=== PATIENT | male | born 1985 | race Caucasian/White ===

== ENCOUNTER 2020-10-27 04:23 | Emergency (ER) | payer SELFPAY ==
[~2020-10-27] VITALS: Ht 195.6 cm; Wt 161.8 kg
[2020-10-27] MEDS ORDERED: aspirin 81mg tab.chew PO ONE (05:00)
[2020-10-27 05:40] LABS: BASOPHILS # (AUTO) 0.1 X10'3 (0-0.2); BASOPHILS % (AUTO) 0.7 % (0-1); EOSINOPHILS # (AUTO) 0.3 X10'3 (0-0.9); EOSINOPHILS % (AUTO) 3.6 % (0-6); HEMATOCRIT 37.4 % (42.0-52.0); HEMOGLOBIN 12.4 g/dl (14.0-17.9); LYMPHOCYTES # (AUTO) 1.6 X10'3 (1.1-4.8); LYMPHOCYTES % (AUTO) 19.8 % (21-51); MEAN CORPUSCULAR HEMOGLOBIN 28.8 PG (27.0-31.0); MEAN CORPUSCULAR HGB CONC 33.2 g/dL (33.0-36.5); MEAN CORPUSCULAR VOLUME 86.8 FL (78-98); MEAN PLATELET VOLUME 8.5 FL (7.4-10.4); MONOCYTES # (AUTO) 0.7 X10'3 (0-0.9); MONOCYTES % (AUTO) 8.6 % (2-12); NEUTROPHILS # (AUTO) 5.5 X10'3 (1.8-7.7); NEUTROPHILS % (AUTO) 67.3 % (42-75); PLATELET COUNT 237 X10'3 (140-440); RED BLOOD COUNT 4.31 X10'6 (4.70-6.10); RED CELL DISTRIBUTION WIDTH 14.6 % (11.5-14.5); WHITE BLOOD COUNT 8.2 X10'3 (4.5-11.0)
[2020-10-27 05:55] LABS: ALANINE AMINOTRANSFERASE 48 U/L (12-78); ALBUMIN 3.3 G/DL (3.4-5.0); ALBUMIN/GLOBULIN RATIO 0.8 (1.1-1.5); ALKALINE PHOSPHATASE 52 IU/L (46-116); ANION GAP 6 (8-16); ASPARTATE AMINO TRANSFERASE 31 U/L (10-37); BILIRUBIN,TOTAL 0.3 MG/DL (0.1-1.0); BLOOD UREA NITROGEN 13 MG/DL (7-18); BUN/CREATININE RATIO 12.3 (5.4-32.0); CALCIUM 8.5 MG/DL (8.5-10.1); CHLORIDE 105 MMOL/L (99-107); CREATININE 1.06 MG/DL (0.60-1.10); GLUCOSE 93 MG/DL (70-104); SODIUM 141 MMOL/L (135-145); TOTAL CARBON DIOXIDE 29.9 MMOL/L (24-32); TOTAL PROTEIN 7.2 G/DL (6.4-8.2); eGFR 79 ML/MIN
[2020-10-27 06:02] LABS: MAGNESIUM 2.3 MG/DL (1.5-2.4)
--- NOTE | 2020-10-27 08:53 | NUR ---
Ex Rachel [phone].
[2020-10-27 09:11] VITALS: BP 133/88
== END 2020-10-27 09:12 | disposition home or self-care (01) ==
LOC: ER 04:24
DX: R07.89 Other chest pain (principal); R94.31 Abnormal electrocardiogram [ECG] [EKG]; R60.9 Edema, unspecified; R53.83 Other fatigue; R11.0 Nausea; F17.200 Nicotine dependence, unspecified, uncomplicated; Z98.890 Other specified postprocedural states
CPT/HCPCS: 36415; 71045; 80053; 83735; 83880; 84484; 85025; 93005; 93971; 99285

== ENCOUNTER 2022-02-15 19:13 | Inpatient (IN) | payer MEDICAID ==
[~2022-02-15] VITALS: Ht 198.1 cm; Wt 156.6 kg
[2022-02-15] MEDS ORDERED: acetaminophen 325mg tablet PO STA (21:09)
[2022-02-15] MEDS ORDERED: ceFAZolin 1GM/D5W- ADD-VANTAGE 50 ML IV ONE (21:10)
[2022-02-15] MEDS ORDERED: normal saline 1000ml 1,000 ML IV ONE ×2 (21:10→22:50)
[2022-02-15 22:33] LABS: BASOPHILS % (AUTO) 0.2 % (0-1); EOSINOPHILS % (AUTO) 0.1 % (0-6); HEMATOCRIT 39.1 % (42.0-52.0); LYMPHOCYTES % (AUTO) 7.2 % (21-51); MEAN CORPUSCULAR HEMOGLOBIN 28.5 PG (27.0-31.0); MEAN CORPUSCULAR HGB CONC 33.3 g/dL (33.0-36.5); MEAN CORPUSCULAR VOLUME 85.5 FL (78-98); MEAN PLATELET VOLUME 8.6 FL (7.4-10.4); MONOCYTES % (AUTO) 7.8 % (2-12); NEUTROPHILS # (AUTO) 11.3 X10'3 (1.8-7.7); NEUTROPHILS % (AUTO) 84.7 % (42-75); PLATELET COUNT 223 X10'3 (140-440); RED BLOOD COUNT 4.57 X10'6 (4.70-6.10); RED CELL DISTRIBUTION WIDTH 15.1 % (11.5-14.5); WHITE BLOOD COUNT 13.3 X10'3 (4.5-11.0)
[2022-02-15 23:00] LABS: ALANINE AMINOTRANSFERASE 57 U/L (12-78); ALBUMIN/GLOBULIN RATIO 0.7 (1.1-1.5); ALKALINE PHOSPHATASE 59 IU/L (46-116); ANION GAP 7 (8-16); ASPARTATE AMINO TRANSFERASE 42 U/L (10-37); BILIRUBIN,TOTAL 0.4 MG/DL (0.1-1.0); BLOOD UREA NITROGEN 13 MG/DL (7-18); BUN/CREATININE RATIO 11.8 (5.4-32.0); CALCIUM 8.6 MG/DL (8.5-10.1); CHLORIDE 95 MMOL/L (99-107); GLUCOSE 120 MG/DL (70-104); MAGNESIUM 2.1 MG/DL (1.5-2.4); POTASSIUM 4.1 MMOL/L (3.5-5.1); SODIUM 132 MMOL/L (135-145); TOTAL PROTEIN 7.3 G/DL (6.4-8.2); eGFR 75 ML/MIN
[2022-02-15] MEDS ORDERED: ketorolac trometh. 30mg/ml inj. IV ONE (23:20)
[2022-02-16] MEDS ORDERED: magnesium Cl slow-release 64mg tablet PO PRN (01:10)
[2022-02-16] MEDS ORDERED: magnesium 4gm in 100ml NS 100 ML IV PRN (01:10)
[2022-02-16] MEDS ORDERED: potassium CL 10mEq/100ml bag 100 ML IV PRN (01:10)
[2022-02-16] MEDS ORDERED: ondansetron/PF 4mg/2ml inj IV PRN (01:10)
[2022-02-16] MEDS ORDERED: acetaminophen 325mg tablet PO PRN (01:10)
[2022-02-16] MEDS ORDERED: magnesium 2GM in 50ml NS 50 ML IV PRN (01:10)
[2022-02-16] MEDS ORDERED: POTASSIUM BICARB 20meq eff tab 20 MEQ TABLET.EFF PO PRN ×2 (01:10)
[2022-02-16] MEDS ORDERED: mag hydrox/Alum hydrox/simeth 30ml oral suspension PO PRN (01:10)
[2022-02-16] MEDS ORDERED: magnesium hydroxide 30ml (MOM) UD suspension PO PRN (01:10)
[2022-02-16] MEDS: clindamycin 150mg capsule PO SCH ×4 (01:30→20:19)
[2022-02-16] MEDS ORDERED: NO HOME MEDS (01:51)
--- NOTE | 2022-02-16 02:54 | NUR ---
report called to amanda no questions awaiting patient
[2022-02-16 03:05] VITALS: BP 137/87
--- NOTE | 2022-02-16 03:05 | NUR ---
PATIENT ADMITTED TO ROOM 4014B FROM ER FOR LEFT LOWER EXTREMITY CELLULITIS. PLACE COMFORTABLE IN BED. VITAL SIGNS TAKEN AND RECORDED.
[2022-02-16] MEDS: normal saline 1000ml 1,000 ML IV SCH ×3 (03:10→20:20)
[2022-02-16 06:00] VITALS: BP 157/90
[2022-02-16] MEDS: HYDROcodone/acetaminophen 5mg/325mg tablet PO PRN ×2 (06:06→12:36)
--- NOTE | 2022-02-16 06:40 | NUR ---
Problems reprioritized. Patient report given, questions answered & plan of care reviewed with CLAIRE PETERSON.
--- NOTE | 2022-02-16 06:44 | NUR ---
Patient in room ORTHO 4014. I have received report from Rosette and had the opportunity to ask questions and assume patient care.
[2022-02-16] MEDS: K and/or MAG REPLACEMENT MC SCH ×2 (07:57→20:00)
[2022-02-16] MEDS: docusate sod 100mg capsule PO SCH ×2 (08:00→20:20)
[2022-02-16] MEDS: heparin, porcine 5000 units/ml vial SQ SCH ×2 (08:01→20:19)
[2022-02-16 10:00] VITALS: BP 143/82
[2022-02-16 10:25] LABS: MAGNESIUM 2.1 MG/DL (1.5-2.4)
[2022-02-16] MEDS: cefazolin/dext.iso 2gm/100ml 100 ML IV SCH ×2 (11:18→16:24)
--- NOTE | 2022-02-16 14:09 | NUR ---
RE: Kanu in [id number], pt has 10/10 headache, norco did not relieve, pt requesting pain medication, please advise Thank you Mckenzie [phone]
[2022-02-16] MEDS ORDERED: ibuprofen 200mg tablet PO PRN (16:55)
[2022-02-16 18:00] VITALS: BP 123/72
--- NOTE | 2022-02-16 18:19 | NUR ---
Problems reprioritized. Patient report given, questions answered & plan of care reviewed with Rosette.
--- NOTE | 2022-02-16 18:30 | NUR ---
Patient in room ORTHO 4014. I have received report from CLAIRE PETERSON and had the opportunity to ask questions and assume patient care.
[2022-02-16] MEDS ORDERED: Melatonin 3mg tablet PO SCH (21:10)
[2022-02-16] MEDS: nicotine 7mg patch - 24hr TD SCH (21:42)
[2022-02-16 22:00] VITALS: BP 156/82
--- NOTE | 2022-02-16 22:47 | NUR ---
Student documentation: I have reviewed interventions, assessments performed and documented by Mazin [facility] .
[2022-02-17] MEDS: cefazolin/dext.iso 2gm/100ml 100 ML IV SCH ×2 (00:38→08:00)
[2022-02-17] MEDS: clindamycin 150mg capsule PO SCH ×2 (03:03→08:15)
[2022-02-17 06:00] VITALS: BP 140/90
--- NOTE | 2022-02-17 06:30 | NUR ---
Problems reprioritized. Patient report given, questions answered & plan of care reviewed with KARLA PETERSON.
[2022-02-17] MEDS: normal saline 1000ml 1,000 ML IV SCH (07:10)
[2022-02-17 07:35] LABS: ALANINE AMINOTRANSFERASE 58 U/L (12-78); ALBUMIN 2.7 G/DL (3.4-5.0); ALBUMIN/GLOBULIN RATIO 0.6 (1.1-1.5); ALKALINE PHOSPHATASE 67 IU/L (46-116); ANION GAP 9 (8-16); ASPARTATE AMINO TRANSFERASE 41 U/L (10-37); BILIRUBIN,TOTAL 0.4 MG/DL (0.1-1.0); BLOOD UREA NITROGEN 11 MG/DL (7-18); BUN/CREATININE RATIO 13.6 (5.4-32.0); CHLORIDE 101 MMOL/L (99-107); CREATININE 0.81 MG/DL (0.60-1.10); GLUCOSE 91 MG/DL (70-104); POTASSIUM 4.4 MMOL/L (3.5-5.1); SODIUM 137 MMOL/L (135-145); TOTAL CARBON DIOXIDE 27.3 MMOL/L (24-32); TOTAL PROTEIN 7.5 G/DL (6.4-8.2); eGFR > 90 ML/MIN
[2022-02-17] MEDS: K and/or MAG REPLACEMENT MC SCH (08:00)
[2022-02-17] MEDS: docusate sod 100mg capsule PO SCH (08:15)
[2022-02-17] MEDS: heparin, porcine 5000 units/ml vial SQ SCH (08:18)
[2022-02-17] MEDS: nicotine 7mg patch - 24hr TD SCH (08:19)
[2022-02-17 10:00] VITALS: BP 159/86
--- NOTE | 2022-02-17 10:51 | NUR ---
Paged [facility] Nurs Group Re: Dragan Bobby [id number] Nurse unable to place IV. Lab had difficulty drawing blood, needs PIV and labs. Please assist or advise.
--- NOTE | 2022-02-17 11:17 | NUR ---
Patient informed by Doctor that he would need to stay, Patient wanted to leave. Doctor educated Patient on the risks of leaving as well as the benefits of staying, including that we could increasing his nicotine patch strength, and to return to ER if he wishes to get care. This nurse also educated patient on the risks of leaving and benefits of stay. Patient adamant he wanted to leave. AMA form signed by Doctor and Patient. Patient agreed to have nicotine patch removed prior to leaving as he wanted to smoke, Nurse advised patient to follow up with his Primary Care Provider. Patient left at 1115.
--- NOTE | 2022-02-17 14:00 | NUR ---
WOUND INFECTION EDUCATION PROVIDED BY WOUND CARE 1. Patient instructed to call their primary doctor, or go the ED immediately if any of the following symptoms occur: * Increased pain in wound * Increase in drainage from the wound * Redness in the skin surrounding the wound * Warmth in the skin surrounding the wound * Bleeding from the wound * Temperature of 101 or greater 2. If any of these occur while in the hospital tell a nurse immediately. Addendum: 02/17/22 at 1400 by Kimmy Rick LVN Amended: Links added.
== END 2022-02-17 11:10 | disposition left against medical advice (07) | DRG 383 ==
LOC: ER 19:14 → ED HOLD 02-16 01:12 → ORTHO 4S 02-16 03:22
PROVIDERS: ADMIT Internal Medicine; ATTEND Family Medicine
DX: L03.116 Cellulitis of left lower limb (principal); Z20.822 Contact with and (suspected) exposure to COVID-19; Z53.29 Procedure and treatment not carried out because of patient's decision for other reasons
CPT/HCPCS: 36415; 71045; 80053; 83605; 83735; 84132; 84145; 85025; 87040; 87081; 87811; 93005; 93971; 99285; A4333; G0378; J0690; J1644; J1885; J2405; J7030

== ENCOUNTER 2024-03-10 15:09 | Emergency (ER) | payer SELFPAY ==
[~2024-03-10] VITALS: Ht 198.1 cm; Wt 145.2 kg
[~2024-03-10 15:09] MED LIST: NO HOME MEDS
[2024-03-10 15:11] VITALS: BP 138/98; PULSE 100; TEMP 97.9; O2SAT 98
[2024-03-10] MEDS ORDERED: AMOX500C2 PO (15:19)
[2024-03-10] MEDS: amoxicillin 250mg capsule PO ONE (16:06)
[2024-03-10 16:08] VITALS: RESP 18
== END 2024-03-10 16:10 | disposition home or self-care (01) ==
LOC: ER 15:10
DX: K08.89 Other specified disorders of teeth and supporting structures (principal); K04.7 Periapical abscess without sinus; K02.9 Dental caries, unspecified; Z79.2 Long term (current) use of antibiotics; Z98.890 Other specified postprocedural states
CPT/HCPCS: 99283

== ENCOUNTER 2024-05-24 21:15 | Inpatient (IN) | payer MEDICAID ==
[~2024-05-24] VITALS: Ht 198.1 cm; Wt 141.7 kg
[2024-05-25] MEDS ORDERED: magnesium hydroxide 30ml (MOM) UD suspension PO PRN (02:50)
[2024-05-25] MEDS ORDERED: potassium Cl 20 mEq SR tablet PO PRN ×2 (02:50)
[2024-05-25] MEDS ORDERED: magnesium sulf-water 4G/100mL 100 ML IV PRN (02:50)
[2024-05-25] MEDS ORDERED: morphine 2 MG/ML inj. syringe IV PRN (02:50)
[2024-05-25] MEDS ORDERED: mag hydrox/Alum hydrox/simeth 30ml oral suspension PO PRN (02:50)
[2024-05-25] MEDS ORDERED: magnesium Cl slow-release 64mg tablet PO PRN (02:50)
[2024-05-25] MEDS ORDERED: potassium Cl 40MEQ/1/2NS 520ml 520 ML IV PRN (02:50)
[2024-05-25] MEDS ORDERED: acetaminophen 325mg tablet PO PRN (02:50)
[2024-05-25] MEDS ORDERED: magnesium sulf-water 2g/50mL 50 ML IV PRN (02:50)
[2024-05-25] MEDS ORDERED: ondansetron/PF 4mg/2ml inj IV PRN (02:50)
[2024-05-25] MEDS ORDERED: vancomycin/NS 1 GM ADD-VANTAGE 250 ML IV ONE (03:15)
[2024-05-25] MEDS: metroNIDAZOLE-Flagyl 500mg/NS 100 ML IV SCH (04:07)
[2024-05-25] MEDS: normal saline 1000ml 1,000 ML IV SCH (04:08)
[2024-05-25] MEDS ORDERED: vancomycin/NS 1 GM ADD-VANTAGE 250 ML X 1 DOSE IV ONE (04:45)
[2024-05-25] MEDS: CefTRIAXone/D5W-Rocephin 1gm 50 ML IV SCH (04:54)
[2024-05-25 04:55] LABS: BASOPHILS % (AUTO) 0.5 % (0-1); EOSINOPHILS # (AUTO) 0.3 X10'3 (0-0.9); EOSINOPHILS % (AUTO) 2.7 % (0-6); HEMATOCRIT 42.8 % (42.0-52.0); HEMOGLOBIN 14.3 g/dl (14.0-17.9); LYMPHOCYTES # (AUTO) 1.8 X10'3 (1.1-4.8); LYMPHOCYTES % (AUTO) 19.4 % (21-51); MEAN CORPUSCULAR HEMOGLOBIN 28.6 PG (27.0-31.0); MEAN CORPUSCULAR HGB CONC 33.3 g/dL (33.0-36.5); MEAN CORPUSCULAR VOLUME 85.9 FL (78-98); MONOCYTES # (AUTO) 0.6 X10'3 (0-0.9); MONOCYTES % (AUTO) 6.1 % (2-12); NEUTROPHILS # (AUTO) 6.7 X10'3 (1.8-7.7); NEUTROPHILS % (AUTO) 71.3 % (42-75); PLATELET COUNT 367 X10'3 (140-440); RED BLOOD COUNT 4.98 X10'6 (4.70-6.10); RED CELL DISTRIBUTION WIDTH 13.7 % (11.5-14.5); WHITE BLOOD COUNT 9.4 X10'3 (4.5-11.0)
[2024-05-25 05:07] LABS: ALANINE AMINOTRANSFERASE 28 U/L (12-78); ALBUMIN 3.3 G/DL (3.4-5.0); ALBUMIN/GLOBULIN RATIO 0.7 (1.1-1.5); ALKALINE PHOSPHATASE 52 IU/L (46-116); ANION GAP 8 (8-16); ASPARTATE AMINO TRANSFERASE 19 U/L (10-37); BILIRUBIN,TOTAL 0.3 MG/DL (0.1-1.0); BLOOD UREA NITROGEN 13 MG/DL (7-18); BUN/CREATININE RATIO 14.8 (10.0-20.0); CALCIUM 9.4 MG/DL (8.5-10.1); CHLORIDE 100 MMOL/L (99-107); CREATININE 0.88 MG/DL (0.60-1.10); GLUCOSE 99 MG/DL (70-104); POTASSIUM 3.6 MMOL/L (3.5-5.1); SODIUM 139 MMOL/L (135-145); TOTAL CARBON DIOXIDE 31.5 MMOL/L (24-32); eCRCL 143 ML/MIN; eGFR > 90 ML/MIN
[2024-05-25 05:08] LABS: MAGNESIUM 2.2 MG/DL (1.5-2.4); POTASSIUM 3.6 MMOL/L (3.5-5.1)
[2024-05-25 05:50] VITALS: RESP 14; O2SAT 100
[2024-05-25 06:00] VITALS: BP 153/107; PULSE 70; RESP 14; TEMP 97.3; O2SAT 100
[2024-05-25] MEDS: vancomycin/NS 1 GM ADD-VANTAGE 250 ML X 1 DOSE IV ONE (07:31)
[2024-05-25] MEDS: K and/or MAG REPLACEMENT MC SCH (08:00)
[2024-05-25] MEDS: vancomycin/NS 1 GM ADD-VANTAGE 250 ML IV ONE (09:41)
[2024-05-25] MEDS: docusate sod 100mg capsule PO SCH (09:44)
[2024-05-25] MEDS: heparin, porcine 5000 units/ml vial SQ SCH (09:45)
[2024-05-25 10:00] VITALS: BP 150/88; PULSE 81; RESP 14; TEMP 97.1; O2SAT 99
[2024-05-25 14:39] LABS: URINE AMPHETAMINE SCREEN POSITIVE (Neg); URINE BARBITUATE SCREEN NEGATIVE (Neg); URINE BENZODIAZEPINES SCREEN NEGATIVE (Neg); URINE CANNABINOID SCREEN POSITIVE (Neg); URINE COCAINE SCREEN NEGATIVE (Neg); URINE METHADONE SCREEN NEGATIVE (Neg); URINE OPIATE SCREEN NEGATIVE (Neg); URINE PHENCYCLIDINE SCREEN NEGATIVE (Neg)
[2024-05-25] MEDS: piperacillin/tazo 4.5gm/100ml 100 ML IV SCH (16:00)
[2024-05-25] MEDS: vancomycin/NS 1 GM ADD-VANTAGE 250 ML IV SCH (16:25)
[2024-05-25 18:00] VITALS: BP 152/84; PULSE 61; RESP 14; TEMP 98.7; O2SAT 100
[2024-05-25] MEDS ORDERED: GADOTERATE MEGLUMINE 7.5 MMOL/15 ML VIAL IV ONE (19:23)
[2024-05-25 20:00] VITALS: RESP 16
[2024-05-25 22:00] VITALS: BP 147/95; PULSE 81; RESP 18; TEMP 97.9; O2SAT 98
[2024-05-25] MEDS: hydrOXYzine 25 MG tablet PO PRN (22:42)
[2024-05-26] VITALS (19 sets, daily range): BP systolic 102–155; BP diastolic 72–105; PULSE 66–82; RESP 14–18; TEMP 96.9–98.1; O2SAT 95–100
[2024-05-26] MEDS: VANCOMYCIN LEVEL IV ONE (07:30)
[2024-05-26 09:00] LABS: ALANINE AMINOTRANSFERASE 64 U/L (12-78); ALBUMIN 2.9 G/DL (3.4-5.0); ALBUMIN/GLOBULIN RATIO 0.7 (1.1-1.5); ALKALINE PHOSPHATASE 46 IU/L (46-116); ANION GAP 6 (8-16); ASPARTATE AMINO TRANSFERASE 78 U/L (10-37); BILIRUBIN,TOTAL 0.3 MG/DL (0.1-1.0); BLOOD UREA NITROGEN 17 MG/DL (7-18); BUN/CREATININE RATIO 17.7 (10.0-20.0); CALCIUM 8.7 MG/DL (8.5-10.1); CHLORIDE 105 MMOL/L (99-107); CREATININE 0.96 MG/DL (0.60-1.10); GLUCOSE 96 MG/DL (70-104); MAGNESIUM 2.2 MG/DL (1.5-2.4); POTASSIUM 4.5 MMOL/L (3.5-5.1); SODIUM 138 MMOL/L (135-145); TOTAL CARBON DIOXIDE 26.9 MMOL/L (24-32); TOTAL PROTEIN 6.9 G/DL (6.4-8.2); VANCOMYCIN,TROUGH 13.8 ug/mL (10.0-20.0); eCRCL 131 ML/MIN; eGFR 86 ML/MIN
[2024-05-26 11:18] LABS: BASOPHILS # (AUTO) 0.1 X10'3 (0-0.2); BASOPHILS % (AUTO) 0.7 % (0-1); EOSINOPHILS # (AUTO) 0.2 X10'3 (0-0.9); EOSINOPHILS % (AUTO) 2.6 % (0-6); HEMATOCRIT 41.6 % (42.0-52.0); HEMOGLOBIN 13.7 g/dl (14.0-17.9); LYMPHOCYTES # (AUTO) 1.3 X10'3 (1.1-4.8); LYMPHOCYTES % (AUTO) 16.2 % (21-51); MEAN CORPUSCULAR HEMOGLOBIN 28.4 PG (27.0-31.0); MEAN CORPUSCULAR VOLUME 86.1 FL (78-98); MEAN PLATELET VOLUME 7.7 FL (7.4-10.4); MONOCYTES # (AUTO) 0.7 X10'3 (0-0.9); MONOCYTES % (AUTO) 8.4 % (2-12); NEUTROPHILS % (AUTO) 72.1 % (42-75); PLATELET COUNT 313 X10'3 (140-440); RED BLOOD COUNT 4.84 X10'6 (4.70-6.10); RED CELL DISTRIBUTION WIDTH 13.5 % (11.5-14.5); WHITE BLOOD COUNT 8.3 X10'3 (4.5-11.0)
[2024-05-26] MEDS: dextrose 50%-water 50ml dispensing syringe IV ONE ×2 (13:03→13:17)
[2024-05-26] MEDS ORDERED: bacitracin 15gm ointment TP ONE (13:23)
[2024-05-26] MEDS ORDERED: BUPIVAcaine 2.5mg/ml inj 50ml vial (contains preservative) ONE (13:23)
[2024-05-26] MEDS ORDERED: sevoflurane 250ml liquid IH ONE (13:54)
[2024-05-26] MEDS ORDERED: ondansetron/PF 4mg/2ml inj IV PRN (13:55)
[2024-05-26] MEDS ORDERED: morphine 4 MG/ML inj SYRINge IV PRN (13:55)
[2024-05-26] MEDS ORDERED: proCHLORperazine 10 MG/2 ml inj IV PRN (13:55)
[2024-05-26] MEDS ORDERED: meperidine/PF 25mg/ml syringe IV PRN ×3 (13:55)
[2024-05-26] MEDS: ringers solution, lacted 1,000 ML IV SCH (13:55)
[2024-05-26] MEDS ORDERED: morphine 2 MG/ML inj. syringe IV PRN (13:55)
[2024-05-26] MEDS ORDERED: fentaNYL/PF 50MCG/1 ML 2ML syringe ONE (13:58)
[2024-05-26] MEDS ORDERED: midazolam 1 mg/ML 2ml injection ONE (13:59)
[2024-05-26] MEDS ORDERED: vancomycin 1,000mg inj ONE (14:25)
[2024-05-26] MEDS ORDERED: propofol inj 20 ML IV ONE (14:48)
[2024-05-26] MEDS ORDERED: naloxone 0.4 mg/ml inj IV PRN (14:50)
[2024-05-26] MEDS: BUPIVAcaine 2.5mg/ml inj 50ml vial (contains preservative) SQ ONE (15:25)
[2024-05-26] MEDS: VANCOmycin 1250MG/NS 250ml Bag 250 ML IV SCH (17:23)
[2024-05-26] MEDS: morphine 2 MG/ML inj. syringe IV PRN (18:43)
[2024-05-26] MEDS: potassium cl 20mEq in 1/2 NS 1,000 ML IV SCH (19:59)
[2024-05-27] VITALS (8 sets, daily range): BP systolic 104–146; BP diastolic 72–98; PULSE 76–83; RESP 14–18; TEMP 97.7–98.8; O2SAT 96–100
[2024-05-27] MEDS: VANCOmycin 1250MG/NS 250ml Bag 250 ML IV SCH (05:34)
[2024-05-27 06:34] LABS: BASOPHILS % (AUTO) 0.3 % (0-1); EOSINOPHILS # (AUTO) 0.2 X10'3 (0-0.9); EOSINOPHILS % (AUTO) 1.8 % (0-6); HEMATOCRIT 38.5 % (42.0-52.0); HEMOGLOBIN 12.9 g/dl (14.0-17.9); LYMPHOCYTES # (AUTO) 1.7 X10'3 (1.1-4.8); LYMPHOCYTES % (AUTO) 14.4 % (21-51); MEAN CORPUSCULAR HEMOGLOBIN 28.6 PG (27.0-31.0); MEAN CORPUSCULAR HGB CONC 33.5 g/dL (33.0-36.5); MEAN CORPUSCULAR VOLUME 85.4 FL (78-98); MONOCYTES # (AUTO) 0.7 X10'3 (0-0.9); MONOCYTES % (AUTO) 6.4 % (2-12); NEUTROPHILS # (AUTO) 8.8 X10'3 (1.8-7.7); NEUTROPHILS % (AUTO) 77.1 % (42-75); PLATELET COUNT 327 X10'3 (140-440); RED BLOOD COUNT 4.51 X10'6 (4.70-6.10); RED CELL DISTRIBUTION WIDTH 13.7 % (11.5-14.5); WHITE BLOOD COUNT 11.5 X10'3 (4.5-11.0)
[2024-05-27 06:49] LABS: ALANINE AMINOTRANSFERASE 76 U/L (12-78); ALBUMIN 2.9 G/DL (3.4-5.0); ALBUMIN/GLOBULIN RATIO 0.7 (1.1-1.5); ALKALINE PHOSPHATASE 46 IU/L (46-116); ANION GAP 4 (8-16); ASPARTATE AMINO TRANSFERASE 59 U/L (10-37); BILIRUBIN,TOTAL 0.4 MG/DL (0.1-1.0); BLOOD UREA NITROGEN 13 MG/DL (7-18); BUN/CREATININE RATIO 13.3 (10.0-20.0); CALCIUM 8.6 MG/DL (8.5-10.1); CHLORIDE 104 MMOL/L (99-107); CREATININE 0.98 MG/DL (0.60-1.10); GLUCOSE 80 MG/DL (70-104); POTASSIUM 4.5 MMOL/L (3.5-5.1); SODIUM 138 MMOL/L (135-145); TOTAL CARBON DIOXIDE 30.2 MMOL/L (24-32); TOTAL PROTEIN 6.8 G/DL (6.4-8.2); eCRCL 128 ML/MIN; eGFR 84 ML/MIN
[2024-05-27] MEDS ORDERED: acetaminophen 325mg tablet PO PRN (07:10)
[2024-05-27] MEDS ORDERED: HYDROcodone/acetaminophen 5mg/325mg tablet PO PRN (07:10)
[2024-05-27] MEDS: HYDROcodone/acetaminophen 10/325mg tab PO PRN (07:30)
[2024-05-27] MEDS: nicotine 7mg patch - 24hr TD SCH (11:44)
[2024-05-27] MEDS ORDERED: GADOTERATE MEGLUMINE 7.5 MMOL/15 ML VIAL IV ONE (13:34)
[2024-05-27] MEDS: DOXYCYCLINE 100MG CAPSULE PO SCH (16:20)
[2024-05-27] MEDS: amox tr/potassium clavulanate 875/125mg TAB PO SCH (16:21)
[2024-05-27] MEDS ORDERED: VANCOMYCIN LEVEL IV ONE (16:30)
[2024-05-28 06:00] VITALS: BP 129/79; PULSE 82; RESP 13; TEMP 98.6; O2SAT 97
[2024-05-28 06:19] LABS: BASOPHILS % (AUTO) 0.4 % (0-1); EOSINOPHILS # (AUTO) 0.3 X10'3 (0-0.9); EOSINOPHILS % (AUTO) 2.4 % (0-6); HEMATOCRIT 41.3 % (42.0-52.0); HEMOGLOBIN 13.8 g/dl (14.0-17.9); LYMPHOCYTES # (AUTO) 1.5 X10'3 (1.1-4.8); LYMPHOCYTES % (AUTO) 14.2 % (21-51); MEAN CORPUSCULAR HEMOGLOBIN 28.7 PG (27.0-31.0); MEAN CORPUSCULAR HGB CONC 33.4 g/dL (33.0-36.5); MEAN PLATELET VOLUME 7.9 FL (7.4-10.4); MONOCYTES % (AUTO) 9.3 % (2-12); NEUTROPHILS # (AUTO) 7.7 X10'3 (1.8-7.7); NEUTROPHILS % (AUTO) 73.7 % (42-75); PLATELET COUNT 370 X10'3 (140-440); RED CELL DISTRIBUTION WIDTH 13.3 % (11.5-14.5); WHITE BLOOD COUNT 10.4 X10'3 (4.5-11.0)
[2024-05-28 06:35] LABS: ALANINE AMINOTRANSFERASE 93 U/L (12-78); ALBUMIN/GLOBULIN RATIO 0.6 (1.1-1.5); ALKALINE PHOSPHATASE 45 IU/L (46-116); ANION GAP 4 (8-16); ASPARTATE AMINO TRANSFERASE 66 U/L (10-37); BILIRUBIN,TOTAL 0.2 MG/DL (0.1-1.0); BLOOD UREA NITROGEN 15 MG/DL (7-18); BUN/CREATININE RATIO 17.9 (10.0-20.0); CALCIUM 9.1 MG/DL (8.5-10.1); CHLORIDE 101 MMOL/L (99-107); CREATININE 0.84 MG/DL (0.60-1.10); GLUCOSE 92 MG/DL (70-104); MAGNESIUM 2.1 MG/DL (1.5-2.4); POTASSIUM 4.4 MMOL/L (3.5-5.1); SODIUM 136 MMOL/L (135-145); TOTAL CARBON DIOXIDE 30.6 MMOL/L (24-32); TOTAL PROTEIN 7.9 G/DL (6.4-8.2); eCRCL 150 ML/MIN; eGFR > 90 ML/MIN
[2024-05-28 08:00] VITALS: RESP 13; O2SAT 97
[2024-05-28] MEDS ORDERED: HYDR-3965 PO (11:05)
[2024-05-28] MEDS ORDERED: AMOX-580 PO (11:05)
[2024-05-28] MEDS ORDERED: DOXY-224 PO (11:05)
== END 2024-05-28 15:00 | disposition home or self-care (01) | DRG 314 ==
LOC: ER 21:15 → ED HOLD 05-25 01:17 → SUR 3N 05-25 03:05
PROVIDERS: ADMIT Internal Medicine Pulmonary Disease; ATTEND Family Medicine
PROC: 0L8N0ZZ Division of Right Lower Leg Tendon, Open Approach (ICD-10-PCS; 2024-05-26)
PROC: 0QBN0Z2 Excision of Right Metatarsal, Sesamoid Bone(s) 1st Toe, Open Approach (ICD-10-PCS; principal; 2024-05-26 13:54)
DX: M86.8X7 Other osteomyelitis, ankle and foot (principal); E44.1 Mild protein-calorie malnutrition; L03.115 Cellulitis of right lower limb; L97.519 Non-pressure chronic ulcer of other part of right foot with unspecified severity; E66.9 Obesity, unspecified; F15.10 Other stimulant abuse, uncomplicated; I10 Essential (primary) hypertension; F17.210 Nicotine dependence, cigarettes, uncomplicated; Z82.49 Family history of ischemic heart disease and other diseases of the circulatory system; Z83.3 Family history of diabetes mellitus; Z68.36 Body mass index [BMI] 36.0-36.9, adult; I25.10 Atherosclerotic heart disease of native coronary artery without angina pectoris
CPT/HCPCS: 36415; 73720; 80053; 80202; 80305; 82948; 83735; 84132; 85025; 87070; 87075; 87081; 93005; 97161; 97760; 99285; A4618; A6196; A6222; A6253; A6258; A6446; A6449; A7000; A9575; G0378; J0696; J1644; J2250; J2270; J2543; J2704; J3010; J3370; J3480; J3490; J7030; J7040; Q0177